=== PATIENT | female | born 1960 | race Caucasian/White ===

== ENCOUNTER 2018-09-03 15:30 | Emergency (ER) | payer OTHER ==
[2018-09-03 15:36] VITALS: BP 132/82; PULSE 74; TEMP 98.4; BMI 29.2
[2018-09-03] MEDS ORDERED: KETOROLAC TROMETHAMINE 30 MG/1 ML VIAL IM ONE (15:48)
[2018-09-03] MEDS ORDERED: KETOROLAC TROMETHAMINE 30 MG/1 ML VIAL ONE (15:55)
--- NOTE | 2018-09-03 15:55 | PDOC ---
History of Present Illness - General Chief Complaint: Pain Stated Complaint: RT SHOULDER PAIN Time Seen by Provider: 09/03/18 15:39 History Source: Patient (chronic R shoulder pain X 1 month) Exam Limitations: No Limitations - History of Present Illness Pain Location: denies: chest Past History - Travel Traveled outside of the country in the last 30 days: No Close contact w/someone who was outside of country & ill: No - Past Medical History Allergies/Adverse Reactions: Allergies Allergy/AdvReac Type Severity Reaction Status Date / Time sulfamethoxazole Allergy Unknown Rash Verified 09/03/18 15:36 [From Bactrim] Home Medications: Ambulatory Orders Calcium Phosphate Trib/Vit D3 [Calcium + Vitamin D3 Gummies] 1 each PO BID #60 tab.chew 10/15/15 Cholecalciferol (Vitamin D3) [Vitamin D3 -] 1,000 unit PO DAILY #30 tab Nebulizer and Compressor [Chelsea Choice Nebulizer] 1 each ASDIR #1 each 06/15 Nebulizer Accessories [Reusable Nebulizer Kit] 1 each ASDIR #1 kit 06/16/16 Peak Flow Meter [Assess] 1 each ASDIR #1 each 06/16/16 Albuterol 0.083% Nebulizer Frida [Ventolin 0.083% Nebulizer Soln -] 1 neb NEB Q6H PRN #100 vial 08/19/17 Esomeprazole Magnesium 20 mg PO DAILY PRN #30 capsule.dr 08/19/17 Cholecalciferol (Vitamin D3) [Vitamin D3] 1,000 unit PO DAILY #30 capsule Hydrocortisone 1% Cream [Hytone 1% Cream -] 1 applic TP BID #1 tube 10/12/17 Fluticasone Prop 0.05% Nasal [Flonase -] 1 - 2 spray NS DAILY #1 spray.pump Bacitracin - [Bacitracin Topical Ointment -] 1 applic TP BID #15 applic Psyllium Husk (with Sugar) [Metamucil Powder] 3.4 g PO DAILY #1 bottle 02/10/18 Fexofenadine HCl [Ce Allergy] 60 mg PO BID PRN #60 tablet 03/08/18 Guaifenesin Dm [Robitussin Dm -] 10 ml PO Q4H PRN #240 ml 03/08/18 Sodium Chloride [Saline Nasal [place]] 1 - 2 sprays NS PRN #1 spray 03/08/18 Albuterol Sulfate Inhaler - [Ventolin HFA Inhaler -] 1 - 2 inh PO Q6H PRN #1 inh 06/09/18 Multivitamins [Multivit ([facility])] 1 tab PO DAILY #30 tab 06/09/18 Polyethylene Glycol 3350 [Miralax 255 gm Btl -] 17 gm PO DAILY PRN #1 bottle Diclofenac Sodium [Voltaren] 2 g TP Q6H PRN #100 gel..gram. 07/27/18 Bictegrav/Emtricit/Tenofov Ala [Biktarvy 50-200-25 mg Tablet] 1 each PO DAILY # 30 tablet 08/31/18 Ibuprofen [Motrin -] 600 mg PO BID PRN #30 tablet 08/31/18 Naproxen [EC-Naprosyn] 500 mg PO BID #20 tablet. 09/03/18 Anemia: No Asthma: Yes Cancer: No Cardiac Disorders: No CVA: No COPD: No CHF: No Dementia: No Diabetes: No GI Disorders: No Disorders: No HTN: No Hypercholesterolemia: Yes Liver Disease: No Seizures: No Thyroid Disease: No - Surgical History Abdominal Surgery: Yes Cholecystectomy: Yes - Suicide/Smoking/Psychosocial Hx Smoking Status: No Smoking History: Never smoked Have you smoked in the past 12 months: No Number of Cigarettes Smoked Daily: 0 If you are a former smoker, when did you quit?: 20+years Cigars Per Day: 0 Hx Alcohol Use: No Drug/Substance Use Hx: No Substance Use Type: None Hx Substance Use Treatment: No Review of Systems - Review of Systems Is the patient limited Ukrainian proficient: No Constitutional: No: Chills, Fever Respiratory: No: Shortness of Breath Cardiac (ROS): No: Chest Pain, Palpitations Musculoskeletal: Yes: Other (R shoulder pain) Neurological: No: Numbness *Physical Exam - Vital Signs Last Vital Signs Temp Pulse Resp BP Pulse Ox 98.4 F 74 18 132/82 99 09/03/18 15:33 09/03/18 15:33 09/03/18 15:33 09/03/18 15:33 09/03/18 15:33 - Physical Exam General Appearance: Yes: Nourished Respiratory/Chest: positive: Lungs Clear, Normal Breath Sounds Cardiovascular: positive: Regular Rhythm, Regular Rate, S1, S2 Extremity: positive: Normal Capillary Refill, Other (R shoulder: no pain on ROM , pt limited motion lifting arm up, no weakness) Neurologic: positive: doctor naturopathic II-XII NML intact, Fully Oriented, Alert Moderate Sedation - Procedure Monitoring Vital Signs: Procedure Monitoring Vital Signs Temperature 98.4 F 09/03/18 15:33 Pulse Rate 74 09/03/18 15:33 Respiratory Rate 18 09/03/18 15:33 Blood Pressure 132/82 09/03/18 15:33 O2 Sat by Pulse Oximetry (%) 99 09/03/18 15:33 Medical Decision Making - Medical Decision Making 09/03/18 15:52 58 years old female [id number] presents with chronic right shoulder pain for over the past month. Patient denies any direct trauma to the shoulder. she was seen by her PCP for shoulder pain 2 weeks ago shoulder x-ray was obtained patient was referred to orthopedic. She recently switched insurance 3 days ago so have to wait September 25 before she can see any orthopedic presented to the ER for pain control. Patient denies any new trauma or new pain. Examination consistent with no pain reproduced urine range of motion however patient is unable to properly left hand above had in the is restriction in movement with no pain given the recent x-ray x-rays deferred at this time as patient will need ortho evaluation and MRI imaging Toradol given in the ER patient was advised to follow-up or to once insurance become active I will send Naprosyn to pharmacy for pain control in the interim *DC/Admit/Observation/Transfer Diagnosis at time of Disposition: Shoulder pain, right Qualifiers: Chronicity: chronic Qualified Code(s): M25.511 - Pain in right shoulder; G89.29 - Other chronic pain - Discharge Dispostion Disposition: HOME Condition at time of disposition: Stable Decision to Admit order: No - Prescriptions Prescriptions: Naproxen [EC-Naprosyn] 500 mg PO BID #20 tablet.dr - Referrals Referrals: Nani Colon NP [Primary Care Provider] - Roger Rodriguez MD [Staff Physician] - - Patient Instructions Additional Instructions: Please follow up orthopedics take medications as prescribed for pain Return to the Emergency Department if worsening symptoms occurs. - Post Discharge Activity
== END 2018-09-03 16:31 | disposition home or self-care (01) ==
LOC: JERFT 15:30
PROC: 3E0233Z Introduction of Anti-inflammatory into Muscle, Percutaneous Approach (ICD-10-PCS; principal; 2018-09-03)
DX: M25.511 Pain in right shoulder (principal); G89.29 Other chronic pain; J45.909 Unspecified asthma, uncomplicated; E78.00 Pure hypercholesterolemia, unspecified
CPT/HCPCS: 96372; 99281-25

== ENCOUNTER 2024-05-31 13:38 | Emergency (ER) | payer OTHER ==
[2024-05-31 13:49] VITALS: BP 138/83; PULSE 59; RESP 16; TEMP 98.4; BMI 28.1
== END 2024-05-31 14:43 | disposition home or self-care (01) ==
LOC: FER 13:38
PROC: 0H9GXZZ Drainage of Left Hand Skin, External Approach (ICD-10-PCS; principal; 2024-05-31)
DX: S61.205A Unspecified open wound of left ring finger without damage to nail, initial encounter (principal); L02.512 Cutaneous abscess of left hand; W23.1XXA Caught, crushed, jammed, or pinched between stationary objects, initial encounter
CPT/HCPCS: 73140-TC-LT-FY; 99283-25